=== PATIENT | female | born 2000 | race Two or more races ===

== ENCOUNTER 2024-12-01 19:50 | Observation (INO) | payer MEDICAID, SELFPAY ==
[2024-12-01] VITALS (10 sets, daily range): BP systolic 108–130; BP diastolic 59–76; PULSE 68–95; RESP 17–97; TEMP 37; O2SAT 97–100; BMI 30.8
--- NOTE | 2024-12-01 20:26 | ESPR_ITS ---
Documentation for date of: 12/01/24 OB Labor Progress Note Pain Control Comments: 23 yo at 35w2d c/b: 1) VSD(?) per patient report Presents with several concerns. Headache-- has had headaches throughout and taking tylenol but still having mild-moderate pain. No vision changes, no sudden severe CABEZAS, no neurologic changes or weakness. No other PEC symptoms, BP normal. Contractions: felt 3 contractions while in triage, no LOF, VB Also concerned for decreased movement. Pelvic Exam Comments: GEN: NAD, comfortable RESP: normal work of breathing ABD gravid, non tender SVE: closed/long/high BSUS: cephalic, DVP 5.2cm, anterior placenta Status Comments: FHT: normal baseline, mod sima, no decels [place]: quiet Assessment and Plan Comments: 23 yo at 35w2d presents with: Headache: - continue conservative mangaement - trial of PO mag oxide and reglan in triage today with improvement of symptoms - no concern for acute neurologic diagnosis, PEC based on VS and clinical symptoms - encourage hydration, precautions reviewed Contractions - No s/s of PTL or acute infection - precautions reviewed Decreased movement - Reactive NST - normal DVP - reports now normal movement in triage Next OBGYN visit: 12/07/24
[2024-12-01] MEDS: MAGNESIUM OXIDE 400 MG TABLET PO (20:30)
[2024-12-01] MEDS: METOCLOPRAMIDE 5 MG TABLET 10 MG PO (20:30)
== END 2024-12-01 20:56 | disposition home or self-care (01) ==
PROVIDERS: Admitting Provider Obstetrics & Gynecology; Visit Provider Obstetrics & Gynecology
DX: O47.03 False labor before 37 completed weeks of gestation, third trimester (principal); O36.8130 Decreased fetal movements, third trimester, not applicable or unspecified; O26.893 Other specified pregnancy related conditions, third trimester; R51.9 Headache, unspecified; Z3A.35 35 weeks gestation of pregnancy
CPT/HCPCS: 59025; 59899; A9270

== ENCOUNTER 2024-12-18 18:15 | Observation (INO) | payer MEDICAID, SELFPAY ==
[2024-12-18] VITALS (23 sets, daily range): BP systolic 109; BP diastolic 57; PULSE 76–105; O2SAT 97–100; BMI 34.8
== END 2024-12-18 20:41 | disposition home or self-care (01) ==
PROVIDERS: Admitting Provider Obstetrics & Gynecology; Visit Provider Obstetrics & Gynecology
DX: Z34.83 Encounter for supervision of other normal pregnancy, third trimester (principal); Z3A.37 37 weeks gestation of pregnancy
CPT/HCPCS: 59025; 59899